=== PATIENT | male | born 1940 | race Asian ===

== ENCOUNTER → 2016-07-16 | Outpatient (CLI) | payer OTHER | LOC: FIMAGING 11:00 | PROVIDERS: ATTEND Family Medicine Sports Medicine | DX: M25.851 Other specified joint disorders, right hip (principal) ==

== ENCOUNTER → 2016-10-24 | Outpatient (CLI) | payer OTHER | LOC: FIMAGING 09:54 | PROVIDERS: ATTEND Family Medicine Sports Medicine | DX: M25.851 Other specified joint disorders, right hip (principal); M51.36 Other intervertebral disc degeneration, lumbar region ==